=== PATIENT | female | born 2000 | race Caucasian/White ===

== ENCOUNTER 2022-06-15 12:45 | Outpatient (CLI) | payer OTHER ==
[2022-06-15 22:48] LABS: CHLAMYDIA TRACHOMATIS DNA NEGATIVE (NEGATIVE); NEISSERIA GONORRHOEAE DNA NEGATIVE (NEGATIVE); TRICHOMONAS VAGINALIS DNA NEGATIVE (NEGATIVE)
== END 2022-06-15 13:00 | disposition home or self-care (01) ==
LOC: LAB.N 12:45
PROVIDERS: ATTEND Physician Assistant
DX: R30.0 Dysuria (principal)
CPT/HCPCS: 87491; 87591; 87661

== ENCOUNTER 2023-11-26 08:08 | Outpatient (CLI) | payer OTHER ==
--- NOTE | 2023-11-26 16:49 | MRI Report ---
PROCEDURE: Brain W/WO INDICATIONS: HEADACHE TECHNIQUE: Multiplanar multisequential MR images of the brain were obtained before and after intrave nous contrast administration. COMPARISON: None. FINDINGS: CSF spaces: Basal cisterns are patent. No extra-axial fluid collections. Ventricles are normal in size and shape. Brain: No midline shift. No intracranial bleeds or masses. No abnormal intracranial enhancement. The brainstem appears normal. Diffusion-weighted images demonstrate no acute infarct. Normal intrav ascular flow voids are present. Skull and face: Calvarial marrow is normal in signal. Orbits appear normal. Sinuses: Sinuses and mastoids appear clear. IMPRESSION: Normal MRI of the brain with and without contrast Reviewed by: Tres Goodman MD on 11/26/2023 3:48 PM AKMARYURI Approved by: Tres Goodman MD on 11/26/2023 3:48 PM AKDT Station ID: [id number]
== END 2023-11-26 08:09 | disposition home or self-care (01) ==
LOC: DI 08:08
DX: R51.9 Headache, unspecified (principal)